=== PATIENT | female | born 2000 | race Caucasian/White ===

== ENCOUNTER 2024-07-27 19:04 | Day surgery (SDC) | payer BC ==
[2024-07-27 19:54] VITALS: BMI 30.7
[2024-07-27 20:04] LABS: Fetal Membranes Rupture No Membranes Rupture (No Rupture)
== END 2024-07-27 20:25 | disposition home or self-care (01) ==
LOC: CSHLD/OP 19:04
PROVIDERS: ATTEND Obstetrics & Gynecology
DX: O23.593 Infection of other part of genital tract in pregnancy, third trimester (principal); N89.8 Other specified noninflammatory disorders of vagina; Z03.71 Encounter for suspected problem with amniotic cavity and membrane ruled out; O99.283 Endocrine, nutritional and metabolic diseases complicating pregnancy, third trimester; E07.81 Sick-euthyroid syndrome; Z90.89 Acquired absence of other organs; Z3A.35 35 weeks gestation of pregnancy; Z79.890 Hormone replacement therapy
CPT/HCPCS: 84112; 99282

== ENCOUNTER 2024-08-13 05:25 | Inpatient (IN) | payer BC ==
[2024-08-13 05:43] VITALS: BMI 30.9
[2024-08-13] MEDS ORDERED: Lidocaine 1% (PF) 30 ML VIAL SC PRN (05:45)
[2024-08-13] MEDS ORDERED: Oxytocin 30 units/NS 500 ML 500 ML IV SCH ×4 (05:45→19:30)
[2024-08-13] MEDS ORDERED: Carboprost 250 MCG/ML AMP IM PRN (05:45)
[2024-08-13] MEDS ORDERED: Misoprostol 200 MCG TAB PR PRN (05:45)
[2024-08-13] MEDS ORDERED: Methylergonovine 0.2 MG/ML VIAL IM PRN ×2 (05:45→19:16)
[2024-08-13] MEDS ORDERED: Lactated Ringer's 1,000 ML IV SCH (05:45)
[2024-08-13] MEDS ORDERED: Docusate 100 MG CAP PO PRN (05:45)
[2024-08-13] MEDS ORDERED: HYDROcodone/Acetaminophen 5/325 mg Tablet PO PRN ×3 (05:45→19:16)
[2024-08-13] MEDS ORDERED: fentaNYL 50 mcg/mL 1 mL Vial SLOW IVP PRN (05:45)
[2024-08-13] MEDS ORDERED: Promethazine HCl 25 MG/ML VIAL IM PRN ×2 (05:45→11:03)
[2024-08-13] MEDS ORDERED: Ondansetron PF 4 MG/2 ML Vial IVP PRN ×3 (05:45→19:16)
[2024-08-13] MEDS ORDERED: hydrALAZINE 20 MG/ML VIAL SLOW IVP PRN ×2 (05:45→19:16)
[2024-08-13] MEDS ORDERED: Diphenoxylate HCl/Atropine Tablet PO PRN ×2 (05:45)
[2024-08-13] MEDS ORDERED: Acetaminophen 500 MG TAB PO PRN (05:45)
[2024-08-13 06:41] LABS: Hematocrit 33.3 % (34.9-44.5); Hemoglobin 10.9 g/dL (12.0-15.5); Mean Corpuscular HGB CONC 32.7 g/dL (32.0-36.0); Mean Corpuscular Hemoglobin 25.2 pg (27.0-33.0); Mean Corpuscular Volume 77.1 fL (81.6-98.3); Mean Platelet Volume 12.7 fL (7.4-10.4); Platelet Count 215 10x3/uL (150-450); RBC Distribution Width 16.5 % (11.5-14.5); Red Blood Cell (RBC) Count 4.32 10x6/uL (3.90-5.03); White Blood Cell (WBC) Count 8.8 10x3/uL (3.5-10.5)
[2024-08-13 07:03] LABS: Syphilis Antibody Nonreactive (Nonreactive); Syphilis Antibody Index 0.16 S/CO (<1.00 Non-Reactive)
[2024-08-13 07:05] LABS: HBsAg Index 0.14 S/CO (0-0.99); HIV (1/2) Antibody/Antigen Non-Reactive (NonReactive); HIV 1/2 INDEX 0.13 S/CO (<1.00); Hep B Surf Ag - L&D Non-Reactive S/CO (NonReactive)
[2024-08-13] MEDS: fentaNYL/Ropivacaine Epidural 100 ML ONE (10:43)
[2024-08-13] MEDS ORDERED: Lactated Ringer's 500 ML IV PRN (11:03)
[2024-08-13] MEDS ORDERED: ePHEDrine Sulfate 50 MG/10 ML VIAL SLOW IVP PRN (11:03)
[2024-08-13] MEDS ORDERED: Acetaminophen 325 MG TAB PO PRN (11:03)
[2024-08-13] MEDS ORDERED: diphenhydrAMINE 50 MG/ML VIAL IVP PRN (11:03)
[2024-08-13] MEDS ORDERED: Moisturizing Cream (Eucerin) 113 GM JAR TOP PRN (11:03)
[2024-08-13] MEDS ORDERED: Naloxone HCl 0.4 mg/ml Vial IVP PRN ×2 (11:03)
[2024-08-13] MEDS ORDERED: Communication Order-Pharmacy FS SCH (11:15)
[2024-08-13] MEDS ORDERED: fentaNYL 2 mcg/Ropivacaine 0.2% Epidural 100 ML CADD EPIDURAL SCH (11:15)
[2024-08-13] MEDS ORDERED: Preparation H Ointment 28 GM TUBE PR PRN (19:16)
[2024-08-13] MEDS ORDERED: Misoprostol 200 MCG TAB VAG PRN (19:16)
[2024-08-13] MEDS ORDERED: Milk Of Magnesia 30 ML UDCUP PO PRN (19:16)
[2024-08-13] MEDS ORDERED: Zolpidem Tartrate 5 MG TAB PO PRN (19:16)
[2024-08-13] MEDS ORDERED: Benzocaine-Menthol 82.5 ML CAN TOP PRN (19:16)
[2024-08-13] MEDS ORDERED: Lanolin Ointment 7 GM TUBE TOP PRN (19:16)
[2024-08-13] MEDS ORDERED: Bisacodyl 10 MG SUPP PR PRN (19:16)
[2024-08-13] MEDS ORDERED: diphenhydrAMINE 25 MG CAP PO PRN (19:16)
[2024-08-13] MEDS: Ibuprofen 800 MG TAB PO PRN (19:33)
[2024-08-14] MEDS: HYDROcodone/Acetaminophen 5/325 mg Tablet PO PRN (01:33)
[2024-08-14] MEDS: Boostrix 0.5 ML (Tdap) VIAL (>/=7 yrs of age) IM ONE (01:34)
[2024-08-14] MEDS: Docusate 100 MG CAP PO SCH (01:34)
[2024-08-14 04:42] LABS: Hemoglobin 9.2 g/dL (12.0-15.5); Mean Corpuscular HGB CONC 32.9 g/dL (32.0-36.0); Mean Corpuscular Hemoglobin 25.6 pg (27.0-33.0); Mean Corpuscular Volume 77.8 fL (81.6-98.3); Platelet Count 192 10x3/uL (150-450); RBC Distribution Width 16.6 % (11.5-14.5); White Blood Cell (WBC) Count 22.3 10x3/uL (3.5-10.5)
[2024-08-14] MEDS: Ibuprofen 800 MG TAB PO SCH (05:22)
[2024-08-14] MEDS: Ferrous Sulfate 325 MG TAB PO SCH (07:41)
[2024-08-14 16:03] VITALS: TEMP 97.9
[2024-08-14 19:58] VITALS: BP 113/72
[2024-08-15] MEDS ORDERED: Ibuprofen 800 MG TAB ONE ×2 (05:11→13:11)
[2024-08-15] MEDS ORDERED: Docusate 100 MG CAP ONE (07:11)
[2024-08-15] MEDS ORDERED: Ferrous Sulfate 325 MG TAB ONE (07:11)
[2024-08-15] MEDS ORDERED: Acetaminophen 325 MG TAB ONE (13:11)
== END 2024-08-15 17:20 | disposition home or self-care (01) | DRG 807 ==
LOC: CSHLD 05:25 → CSHPP 22:12
PROVIDERS: ADMIT Obstetrics & Gynecology; ATTEND Obstetrics & Gynecology
PROC: 10E0XZZ Delivery of Products of Conception, External Approach (ICD-10-PCS; principal; 2024-08-13)
PROC: 0HQ9XZZ Repair Perineum Skin, External Approach (ICD-10-PCS; 2024-08-13)
PROC: 10907ZC Drainage of Amniotic Fluid, Therapeutic from Products of Conception, Via Natural or Artificial Opening (ICD-10-PCS; 2024-08-13)
DX: O70.0 First degree perineal laceration during delivery (principal); Z37.0 Single live birth; Z3A.40 40 weeks gestation of pregnancy
CPT/HCPCS: 36415; 85027; 86762; 86780; 86850; 86900; 86901; 87340; 87389; 88307